=== PATIENT | male | born 1950 | race Caucasian/White ===

== ENCOUNTER 2020-02-22 06:16 | Day surgery (SDC) | payer MEDICARE ==
[2020-02-22] MEDS ORDERED: CEFAZOLIN SODIUM IN 0.9 % NACL 2 GM/100 ML BAG IV ONE (06:21)
[2020-02-22] MEDS ORDERED: LACTATED RINGERS 1,000 ML IV ONE ×2 (06:30→08:33)
[2020-02-22] MEDS ORDERED: BUPIVACAINE 0.25% PF 30 ML VIAL ONE (07:12)
--- NOTE | 2020-02-22 07:12 | ANESTHESIA ---
Pre-Anesthesia VS, & Labs - Diagnosis Foreign body right palm - Procedure excision of FB right hand Vital Signs: Temp Pulse Resp BP Pulse Ox 37.1 C 67 16 167/107 H 99 02/22/20 06:30 02/22/20 06:30 02/22/20 06:30 02/22/20 06:30 02/22/20 06:30 Height 6 ft 1 in Weight (kg) 98.7 kg - NPO >8 hours Home Medications and Allergies Home Medications: Ambulatory Orders Titi Inhibitor 02/22/20 Statin 02/22/20 Titi Inhibitor 02/22/20 Statin 02/22/20 Allergies/Adverse Reactions: Allergies Allergy/AdvReac Type Severity Reaction Status Date / Time No Known Drug Allergies Allergy Verified 02/22/20 06:51 Anes History & Medical History - Anesthetic History Anesthesia Complications: reports: No previous complications - Medical History Cardiovascular: reports: Hypertension, High cholesterol Pulmonary: reports: None Gastrointestinal: reports: None Urinary: reports: Incontinence Neuro: reports: None Musculoskeletal: reports: None Endocrine/Autoimmune: reports: None Blood Disorders: reports: None Skin: reports: None Smoking Status: Never smoker Psychosocial: reports: No issues indicated - Surgical History General: Colonoscopy Urologic: Prostatic surgery Orthopedic: Arthroscopic surgery Exam General: Alert, Oriented x3, Cooperative, No acute distress Dental: WNL Mouth Openin Fingerbreadth Neck Mobility: Normal Mallampati classification: II Thyromental Distance: 4-6 cm Respiratory: Lungs clear, Normal breath sounds, No respiratory distress, No accessory muscle use Cardiovascular: Regular rate, Normal S1, Normal S2, No murmurs Mental/Cognitive Status: Alert/Oriented X3, Normal for patient Plan Anesthesia Type: MAC Consent for Procedure(s) Verified and Reviewed: Yes Code Status: Attempt Resuscitation ASA classification: 2-Mild systemic disease Is this case an emergency?: No
[2020-02-22] MEDS ORDERED: LIDOCAINE 1%-EPI 1:100000 20 ML MDV ONE (07:36)
[2020-02-22] MEDS ORDERED: BUPIVACAINE 0.5% PF 30 ML VIAL ONE (07:37)
[2020-02-22] MEDS ORDERED: BACITRACIN ZINC OINT 14 GM TOP ONE (08:15)
[2020-02-22] MEDS ORDERED: BACITRACIN ZINC OINT 1 PACKET TOP ONE (08:28)
[2020-02-22] MEDS ORDERED: HYDROcod/ACETAM 5/325 MG TABLET PO PRN (08:43)
--- NOTE | 2020-02-22 08:56 | OPERATIVE REPORT ---
Operative Report - General Procedure Date: 02/22/20 Planned Procedure: Removal of foreign body right hand Pre-Op Diagnosis: Foreign body palm of right hand Procedure Performed: Removal foreign body right hand - Procedure Note Primary Surgeon: Dr. Tay Styles Secondary Surgeon: MOISES Cline Anesthesia Provider: Ryan Anesthesia Technique: MAC Estimated Blood Loss (mL): 2 Indications: About 3 weeks ago and had aThis is a 69-year-old man who was doing some wood kam wood sliver from the kam into the palm of his right hand. He has been using his right hand and tolerating the discomfort. He has had occasional drainage over the past couple days and slight increase in pain. He has had no signs of cellulitis or lymphangitis. He had no neurovascular deficit on exam or tendon deficit. The foreign body was located in the palm of the hand in line with the 2nd and 3rd fingers. Findings: There were 3 wood foreign bodies, appeared like eucalyptus. The longest wood foreign body measured 1-1/4 inches, the second measured three quarters of an inch and the third measured half inch. The diameter was approximately 1 mm for each.There was no gross infection at the operative site. Complications: None noted - Other Other Information/Narrative: The patient was brought to the operating room table and was placed in a supine position with the right arm over a arm extension table. A pneumatic tourniquet was applied to the proximal right arm over cast padding and secured with a U drape. The right upper extremity was prepped and draped in a sterile manner in the usual fashion. A timeout procedure was performed by the entire operating room team and all were in agreement. A mixture of 1% Xylocaine with epinephrine, half percent Marcaine without epinephrine was injected into the carpal tunnel using a total of 4 cc. An additional amount of 3 to 4 cc was injected subcutaneously over the foreign body site. The right upper extremity was exsanguinated and the pneumatic tourniquet was elevated to 175 mmHg. A 1- 1/2 cm incision was made over the foreign body in the area of the first webspace, mid palm right hand. The foreign body body was encountered as it pierced the palmar aponeurosis. The foreign body tunnel was opened and explored an additional 2 fragments were removed as noted in the findings. The wound was thoroughly irrigated, probed for any structural damage. There is no sign of any significant structural damage to tendon, nerve or vessel. The foreign body was lodged up against the flexor tendon of the second finger at the entrance site. The pneumatic tourniquet was deflated after 9 minutes. Hemostasis was achieved. A single vertical mattress suture was used to close the incision. Xeroform, bacitracin and a bulky soft hand dressing was applied. He did receive 2 g of Ancef prior to the incision and tolerated the procedure well without any overt complication.
[2020-02-22 09:34] VITALS: BP 142/88
[2020-02-22] MEDS ORDERED: fentaNYL 100 MCG/2 ML VIAL IVP ONE (18:40)
[2020-02-22] MEDS ORDERED: PROPOFOL 200 MG/20 ML VIAL IVP ONE (18:40)
[2020-02-22] MEDS ORDERED: MIDAZOLAM 2 MG/2 ML VIAL IVP ONE (18:40)
== END 2020-02-22 06:17 | disposition home or self-care (01) ==
LOC: SDS 06:16
PROVIDERS: ATTEND Orthopaedic Surgery
PROC: 0JCJ0ZZ Extirpation of Matter from Right Hand Subcutaneous Tissue and Fascia, Open Approach (ICD-10-PCS; principal; 2020-02-22 07:30)
DX: S60.551A Superficial foreign body of right hand, initial encounter (principal); W45.8XXA Other foreign body or object entering through skin, initial encounter; Y92.009 Unspecified place in unspecified non-institutional (private) residence as the place of occurrence of the external cause; Y93.E9 Activity, other interior property and clothing maintenance
CPT/HCPCS: 10120; A9270; J0690; J7120